=== PATIENT | female | born 1995 | race Caucasian/White ===

== ENCOUNTER 2016-10-03 10:31 | Emergency (ER) | payer BC, OTHER ==
[~2016-10-03] VITALS: Ht 157.5 cm; Wt 88.6 kg
[~2016-10-03 10:31] MED LIST: AMOX875T PO; HYDR-3983 PO; ONDA4TAB65 PO
[2016-10-03 10:38] VITALS: TEMP 36.6; Ht 157.5 cm; Wt 88.6 kg
[2016-10-03] MEDS ORDERED: SODIUM CHLORIDE 0.9% 1000ML 1,000 ML IV STA (10:53)
[2016-10-03] MEDS ORDERED: FAMOTIDINE 20MG/102 ML D5W IV STA (10:53)
[2016-10-03] MEDS ORDERED: OMEP20CA9 PO (10:53)
[2016-10-03] MEDS ORDERED: ALUMINUM/MAGNESIUM SUSP 30 ML UDC PO STA (10:53)
[2016-10-03] MEDS ORDERED: MoRPHine SULFATE 4 MG/ML 1 ML CARP\\VIAL IV STA (10:53)
[2016-10-03] MEDS ORDERED: LIDOCAINE HCL 2% VISC SOLN 20 ML UDC PO STA (10:53)
[2016-10-03] MEDS ORDERED: ONDANSETRON INJ 2 MG/ML 2 ML VIAL IV STA (10:53)
[2016-10-03] MEDS ORDERED: PANTOprazole INJ 40 MG in SYRINGE 0 ML IV ONE (11:00)
[2016-10-03 11:14] LABS: MANUAL MICROSCOPIC REQUIRED? NO; REVIEW REQ? NO; URINE APPEARANCE CLEAR (CLEAR); URINE BILIRUBIN NEG (NEG); URINE COLOR YELLOW; URINE NITRITE NEG (NEG); URINE PH 6.5 (4.5-7.5); URINE SPECIFIC GRAVITY 1.003 (1.000-1.030); UROBILINOGEN NEG (NEG); ZZUR CULT IF INDIC CLEAN CATCH NO
[2016-10-03 11:49] LABS: BASO % 0.2 %; BASO ABS # 0.01 K/uL (0-0.2); COMPLETE YES; EOS % 0.9 %; HEMATOCRIT 48.1 % (37-47); IG% 0.3 %; LYMPH % 25.8 %; LYMPH ABS # 1.51 K/uL (1.2-3.4); MEAN CELL VOLUME 87.5 fL (80-100); MEAN CORPUSCULAR HEMOGLOBIN 29.1 pg (25-34); MEAN CORPUSCULAR HGB CONC 33.3 g/dl (32-36); MEAN PLATELET VOLUME 8.7 fL (7.4-10.4); MONO % 8.4 %; NEUT % 64.4 %; PLATELET COUNT 186 K/uL (130-400); WHITE BLOOD COUNT 5.85 K/uL (4.8-10.8)
--- NOTE | 2016-10-03 11:59 | DIAGNOSTIC IMAGING REPORT ---
ABDOMEN 2VIEW W/PA CHEST RTN CLINICAL HISTORY: upper abdominal pain/nausea/vomiting COMPARISON STUDY: No previous studies for comparison. FINDINGS: The soft tissues, psoas shadows, renal outlines and intestinal gas pattern appear normal. There is no evidence for bowel obstruction. There is no evidence for free intraperitoneal air. No abnormal abdominal calcifications are seen. A frontal view of the chest was performed and is unremarkable. IMPRESSION: Normal study. Electronically signed by: Home Resendiz M.D. 10/03/2016 11:57 AM Dictated Date/Time: 10/03/2016 11:57 AM
[2016-10-03 12:02] LABS: BUN/CREATININE RATIO 9.9 (10-20); CALCIUM 9.2 mg/dl (8.5-10.1); CREATININE 0.83 mg/dl (0.60-1.20); POTASSIUM 4.9 mmol/L (3.5-5.1)
--- NOTE | 2016-10-03 12:23 | DIAGNOSTIC IMAGING REPORT ---
Right upper quadrant ultrasound GALLBLADDER-ABD LIMITED CLINICAL HISTORY: right upper quadrant and epigastric tenderness and pain TECHNIQUE: Ultrasound COMPARISON STUDY: 03/02/2016 FINDINGS: Normal gallbladder. Common bile duct 4 mm. Mild fatty infiltration of liver. Pancreas and right kidney are unremarkable. No evidence for hydronephrosis. IMPRESSION: Mild fatty infiltration of liver. Otherwise negative study Electronically signed by: Home Resendiz M.D. 10/03/2016 12:21 PM Dictated Date/Time: 10/03/2016 12:20 PM
--- NOTE | 2016-10-03 12:51 | EMERGENCY ROOM VISIT NOTE ---
History First contact with patient: 10:43 Chief Complaint: NAUSEA Stated Complaint: NAUSEA History of Present Illness The patient is a 21 year old female who presents to the Emergency Room with complaints of severe nausea for 3 weeks. She states yesterday and today she felt like she was going to vomit but just was gagging. She states that her epigastric region is painful intermittently and it feels like it is "bloated". The patient cannot correlate the pain and nausea with food intake. The patient admits to normal bowel movements. The patient denies any urinary symptoms of frequency, urgency, dysuria or hematuria. The patient states that she was seen at [facility] last Thursday for the same symptoms. They told her that it was acid in her stomach and placed her on prescription strength Prilosec. The patient has not noticed any difference on the Prilosec. The patient states she is not had similar symptoms in the past. Past Medical/Surgical History Medical Problems: (1) No pertinent past medical history Surgical Problems: (1) [place] teeth extracted Family History Diabetes mellitus FHx: cancer Social History Smoking Status: Never Smoker Alcohol Use: occasionally Marital Status: in relationship Housing Status: lives with significant other Occupation Status: employed Current/Historical Medications Scheduled Omeprazole (Prilosec), 20 MG PO QAM Ondansetron Hcl (Zofran), 4 MG PO PRN Allergies Coded Allergies: Sulfa Antibiotics (Verified Allergy, Unknown, RASH? - HAPPENED A CHILD , 10/03/16) Physical Exam Vital Signs Date Time Temp Pulse Resp B/P Pulse Ox O2 Delivery O2 Flow Rate FiO2 10/03/16 10:38 36.6 78 20 138/96 100 Room Air Physical Exam GENERAL: 21-year-old white female appears in no acute distress. MENTAL Status: Alert and oriented 3. MOUTH: Mucosa is moist NECK: Supple, no lymphadenopathy noted. No carotid bruits noted. LUNGS: Clear auscultation without wheezes rales or rhonchi. CARDIAC: Regular rate and rhythm without murmur. Pulses is full and equal throughout. BACK: No CVA tenderness noted. ABDOMEN: Positive bowel sounds all 4 quadrants. Soft, tenderness palpation in the right upper quadrant as well as epigastric region. Remainder of abdomen is nontender to palpation without organomegaly or masses. EXTREMITIES: No cyanosis or edema noted. Medical Decision & Procedures ER Provider Diagnostic Interpretation: Right upper quadrant ultrasound GALLBLADDER-ABD LIMITED CLINICAL HISTORY: right upper quadrant and epigastric tenderness and pain TECHNIQUE: Ultrasound COMPARISON STUDY: 03/02/2016 FINDINGS: Normal gallbladder. Common bile duct 4 mm. Mild fatty infiltration of liver. Pancreas and right kidney are unremarkable. No evidence for hydronephrosis. IMPRESSION: Mild fatty infiltration of liver. Otherwise negative study Electronically signed by: Home Resendiz M.D. 10/03/2016 12:21 PM Dictated Date/Time: 10/03/2016 12:20 PM ABDOMEN 2VIEW W/PA CHEST RTN CLINICAL HISTORY: upper abdominal pain/nausea/vomiting COMPARISON STUDY: No previous studies for comparison. FINDINGS: The soft tissues, psoas shadows, renal outlines and intestinal gas pattern appear normal. There is no evidence for bowel obstruction. There is no evidence for free intraperitoneal air. No abnormal abdominal calcifications are seen. A frontal view of the chest was performed and is unremarkable. IMPRESSION: Normal study. Electronically signed by: Home Resendiz M.D. 10/03/2016 11:57 AM Dictated Date/Time: 10/03/2016 11:57 AM Laboratory Results 10/03/16 11:30 Red Blood Count 5.50, Mean Corpuscular Volume 87.5, Mean Corpuscular Hemoglobin 29.1, Mean Corpuscular Hemoglobin Concent 33.3, Mean Platelet Volume 8.7, Neutrophils (%) (Auto) 64.4, Lymphocytes (%) (Auto) 25.8, Monocytes (%) (Auto) 8.4, Eosinophils (%) (Auto) 0.9, Basophils (%) (Auto) 0.2, Neutrophils # (Auto) 3.77, Lymphocytes # (Auto) 1.51, Monocytes # (Auto) 0.49, Eosinophils # (Auto) 0.05, Basophils # (Auto) 0.01 10/03/16 11:30 Test 10/03/16 11:00 10/03/16 11:30 Urine Color YELLOW Urine Appearance CLEAR (CLEAR) Urine pH 6.5 (4.5-7.5) Urine Specific [place] 1.003 (1.000-1.030) Urine Protein NEG (NEG) Urine Glucose (UA) NEG (NEG) Urine Ketones NEG (NEG) Urine Occult Blood NEG (NEG) Urine Nitrite NEG (NEG) Urine Bilirubin NEG (NEG) Urine Urobilinogen NEG (NEG) Urine Leukocyte Esterase NEG (NEG) Urine Test NEG (NEG) White Blood Count 5.85 K/uL (4.8-10.8) Red Blood Count 5.50 M/uL (4.2-5.4) Hemoglobin 16.0 g/dL (12.0-16.0) Hematocrit 48.1 % (37-47) Mean Corpuscular Volume 87.5 fL (80-100) Mean Corpuscular Hemoglobin 29.1 pg (25-34) Mean Corpuscular Hemoglobin Concent 33.3 g/dl (32-36) Platelet Count 186 K/uL (130-400) Mean Platelet Volume 8.7 fL (7.4-10.4) Neutrophils (%) (Auto) 64.4 % Lymphocytes (%) (Auto) 25.8 % Monocytes (%) (Auto) 8.4 % Eosinophils (%) (Auto) 0.9 % Basophils (%) (Auto) 0.2 % Neutrophils # (Auto) 3.77 K/uL (1.4-6.5) Lymphocytes # (Auto) 1.51 K/uL (1.2-3.4) Monocytes # (Auto) 0.49 K/uL (0.11-0.59) Eosinophils # (Auto) 0.05 K/uL (0-0.5) Basophils # (Auto) 0.01 K/uL (0-0.2) RDW Standard Deviation 40.7 fL (36.4-46.3) RDW Coefficient of Variation 12.7 % (11.5-14.5) Immature Granulocyte % (Auto) 0.3 % Immature Granulocyte # (Auto) 0.02 K/uL (0.00-0.02) Anion Gap 5.0 mmol/L (3-11) Est Creatinine Clear Calc Drug Dose 110.0 ml/min Estimated GFR () 116.0 Estimated GFR (Non- 100.1 BUN/Creatinine Ratio 9.9 (10-20) Calcium Level 9.2 mg/dl (8.5-10.1) Total Bilirubin 0.9 mg/dl (0.2-1) Direct Bilirubin 0.2 mg/dl (0-0.2) Aspartate Amino Transf (AST/SGOT) 16 U/L (15-37) Alanine Aminotransferase (ALT/SGPT) 30 U/L (12-78) Alkaline Phosphatase 97 U/L (45-117) Total Protein 8.1 gm/dl (6.4-8.2) Albumin 4.4 gm/dl (3.4-5.0) Lipase 134 U/L (73-393) Medications Administered Medications (Trade) Dose Ordered Sig/Mike Route Start Time Stop Time Status Last Admin Dose Admin Sodium Chloride (Nss 1000ml) 1,000 ml @ 999 mls/hr Q1H1M STAT IV 10/03/16 10:53 10/03/16 11:53 DC 10/03/16 11:33 999 MLS/HR Lidocaine HCl (Viscous Lidocaine 2% Soln) 10 ml NOW STAT PO 10/03/16 10:53 10/03/16 10:57 DC 10/03/16 11:33 10 ML Al Hydroxide/Mg Hydroxide 30 ml 30 ml NOW STAT PO 10/03/16 10:53 10/03/16 10:57 DC 10/03/16 11:33 30 ML Pantoprazole Sodium/Syringe (Protonix Inj/ Syringe) 10 ml @ 5 mls/min NOW ONCE IV 10/03/16 11:00 10/03/16 11:01 DC 10/03/16 11:33 5 MLS/MIN Famotidine (Pepcid 20mg/100 ml) 20 mg ONE STAT IV 10/03/16 10:53 10/03/16 10:57 DC 10/03/16 11:34 20 MG Morphine Sulfate (MoRPHine SULFATE INJ) 4 mg NOW STAT IV 10/03/16 10:53 10/03/16 10:57 DC 10/03/16 11:34 4 MG Ondansetron HCl (Zofran Inj) 4 mg NOW STAT IV 10/03/16 10:53 10/03/16 10:57 DC 10/03/16 11:32 4 MG ED Course Patient was evaluated. The patient's EMR medication list were reviewed. IV access was obtained. The patient was given 1 L normal saline wide-open. She was given morphine 4 mg IV for pain, Zofran 4 mg IV for nausea. She is also given a GI cocktail. CBC and differential, renal profile, LFTs and lipase levels were ordered. Urinalysis was ordered. Beta hCG was ordered. Abdominal series x-ray was ordered and interpreted by the radiologist and myself as above without any acute findings. Ultrasound of the gallbladder was ordered and interpreted by the radiologis without any acute findings. Labs are reviewed. White count was completely normal. Metabolic profile was unremarkable. Urinalysis was negative. Beta hCG was negative. The patient was reevaluated and informed of all findings. The patient was discharged home in stable condition. Medical Decision Differential diagnosis include acute cholecystitis, gastritis, GERD, acute pancreatitis, small bowel obstruction Impression Primary Impression: Nausea & vomiting Departure Information Dispostion Home / Self-Care Condition GOOD Referrals Sldae Wahl MD (PCP) Forms HOME CARE DOCUMENTATION FORM, IMPORTANT VISIT INFORMATION Patient Instructions ED Gastritis, [facility] Additional Instructions Continue Prilosec as prescribed. Also recommend [id number] Zantac 150 mg at bedtime. Avoid the or acidic foods. Do not eat several hours before you go to bed. If symptoms persist recommend follow-up with your family doctor for further testing. If you experience any severe abdominal pain, uncontrolled nausea vomiting, fever return to ER immediately. Problem Qualifiers Primary Impression: Nausea & vomiting Vomiting type: unspecified Vomiting Intractability: unspecified Qualified Codes: R11.2 - Nausea with vomiting, unspecified
[2016-10-03 12:52] VITALS: BP 123/86; PULSE 70; O2SAT 99
== END 2016-10-03 13:14 | disposition home or self-care (01) ==
LOC: C.EDB 10:32 → C.EDC 13:14
DX: R11.2 Nausea with vomiting, unspecified (principal); Z88.2 Allergy status to sulfonamides; Z83.3 Family history of diabetes mellitus; Z80.9 Family history of malignant neoplasm, unspecified